=== PATIENT | male | born 1970 | race Caucasian/White ===

== ENCOUNTER 2019-08-02 14:39 | Emergency (ER) | payer MEDICAID ==
[~2019-08-02] VITALS: Ht 172.7 cm; Wt 60.8 kg
[2019-08-02 14:45] VITALS: BP 121/86
--- NOTE | 2019-08-02 15:00 | NUR ---
PATIENT AMBULATED TO BED 7.
[2019-08-02] MEDS ORDERED: IBUP-2213 PO (15:04)
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
--- NOTE | 2019-08-02 15:10 | NUR ---
DR. HEALY EVALUATING PT AT BEDSIDE.
[2019-08-02] MEDS ORDERED: CLINDAMYCIN 150 MG CAP PO ONE (15:20)
[2019-08-02 15:52] LABS: BASOPHILS # (AUTO) 0.1 K/uL (0.00-0.22); BASOPHILS % (AUTO) 0.9 % (0.0-2.0); EOSINOPHILS # (AUTO) 0.1 K/uL (0-0.4); EOSINOPHILS % (AUTO) 0.9 % (0.0-4.0); HEMOGLOBIN 12.5 g/dL (12.0-18.0); LYMPHOCYTES # (AUTO) 1.4 K/uL (2.0-11.5); MEAN CORPUSCULAR HEMOGLOBIN 33 pg (27-31); MEAN CORPUSCULAR HGB CONC 34 g/dL (33-37); MEAN CORPUSCULAR VOLUME 97.1 fL (80-94); MONOCYTES # (AUTO) 0.6 K/uL (0.8-1.0); MONOCYTES % (AUTO) 6.6 % (1.7-9.3); NEUTROPHILS # (AUTO) 7.6 K/uL (1.8-7.7); NEUTROPHILS % (AUTO) 77.6 % (42.2-75.2); PLATELET COUNT (AUTO) 523 K/uL (140-450); RED BLOOD CELL COUNT(AUTO) 3.81 MIL/uL (4.20-6.10); WHITE BLOOD COUNT (AUTO) 9.8 K/uL (4.8-10.8)
[2019-08-02 16:06] LABS: ANION GAP 14.4 (8-16); CREATININE 0.8 mg/dL (0.7-1.3); POTASSIUM 3.4 mmol/L (3.5-5.1)
--- NOTE | 2019-08-02 16:29 | NUR ---
PT TAKEN FOR CT SCAN.
--- NOTE | 2019-08-02 16:37 | NUR ---
PT BACK FROM CT SCAN.
[2019-08-02] MEDS ORDERED: LIDOCAINE/EPI 1% 1:100000 20 ML VIAL INJ ONE (17:45)
--- NOTE | 2019-08-02 18:50 | NUR ---
WOUND CLEANED AND BANDAID APPLIED.
--- NOTE | 2019-08-02 19:04 | NUR ---
Patient discharged with v/s stable. Written and verbal after care instructions given and explained. Patient alert, oriented and verbalized understanding of instructions. Ambulatory with steady gait. All questions addressed prior to discharge. ID band removed. Patient advised to follow up with PMD. Rx of Bactrim and Keflex given. Patient educated on indication of medication including possible reaction and side effects. Opportunity to ask questions provided and answered.
[2019-08-02 19:08] VITALS: BP 114/68
== END 2019-08-02 19:04 | disposition home or self-care (01) ==
LOC: MED 14:39
DX: M27.2 Inflammatory conditions of jaws (principal); Z79.1 Long term (current) use of non-steroidal anti-inflammatories (NSAID)
CPT/HCPCS: 36415; 41017; 70487; 80048; 85025; 99284; J2001; Q9967